=== PATIENT | female | born 1930 | race Caucasian/White ===

== ENCOUNTER → 2016-05-08 | Outpatient (REF) | payer MEDICARE ==
[2016-05-08 19:22] LABS: CALCIUM OXALATE CRYSTALS SMALL
== END ==
LOC: M SFHCCLAY 11:07
PROVIDERS: ATTEND Family Medicine
DX: R30.0 Dysuria (principal)
CPT/HCPCS: 81001; 81002; 87086; G0463

== ENCOUNTER → 2016-07-31 | Outpatient (REF) | payer MEDICARE | LOC: M SFHCCLAY 15:06 | PROVIDERS: ATTEND Family Medicine | DX: N39.0 Urinary tract infection, site not specified (principal); N30.00 Acute cystitis without hematuria ==

== ENCOUNTER → 2016-10-27 | Outpatient (REF) | payer MEDICARE | LOC: M SFHCCLAY 08:23 | PROVIDERS: ATTEND Family Medicine | DX: R53.82 Chronic fatigue, unspecified (principal) ==

== ENCOUNTER → 2016-10-28 | Outpatient (REF) | payer MEDICARE ==
[2016-10-28 11:54] LABS: FOLATE 6.8 NG/ML (>5.4); VITAMIN B12 LEVEL 490 PG/ML (247-911)
[2016-10-28 12:12] LABS: ALBUMIN 3.8 GM/DL (3.2-5.2); ALBUMIN/GLOBULIN RATIO 1.09 (1.00-1.93); ALKALINE PHOSPHATASE 77 U/L (45-117); ALT/SGPT 28 U/L (12-78); ANION GAP 7 MEQ/L (8-16); AST/SGOT 16 U/L (15-37); BILIRUBIN,TOTAL 0.5 MG/DL (0.2-1.0); BLOOD UREA NITROGEN 19 MG/DL (7-18); CALCIUM LEVEL 9.1 MG/DL (8.8-10.2); CARBON DIOXIDE LEVEL 29 MEQ/L (21-32); CHLORIDE LEVEL 106 MEQ/L (98-107); CREATININE FOR GFR 0.72 MG/DL (0.55-1.02); FREE T4 1.07 NG/DL (0.76-1.46); GLOMERULAR FILTRATION RATE > 60.0 (>32); GLUCOSE, FASTING 96 MG/DL (83-110); POTASSIUM SERUM 4.4 MEQ/L (3.5-5.1); SODIUM LEVEL 142 MEQ/L (136-145); TOTAL PROTEIN 7.3 GM/DL (6.4-8.2)
== END ==
LOC: M SFHCCLAY 07:23
PROVIDERS: ATTEND Family Medicine
DX: R53.82 Chronic fatigue, unspecified (principal)

== ENCOUNTER 2017-11-11 09:28 | Inpatient (IN) | payer MEDICARE ==
[2017-11-11 10:57] LABS: HEMATOCRIT 44.4 % (36.0-47.0); HEMOGLOBIN 14.8 g/dl (12.0-15.5); MEAN CORPUSCULAR HEMOGLOBIN 32.4 pg (27.0-33.0); MEAN CORPUSCULAR HGB CONC 33.3 g/dl (32.0-36.5); MEAN CORPUSCULAR VOLUME 97.2 fl (80.0-96.0); PLATELET COUNT, AUTOMATED 178 10^3/uL (150-450); POSITIVE DIFF POS FLAG; POSITIVE MORPH POS FLAG; RED BLOOD COUNT 4.57 10^6/uL (4.00-5.40); RED CELL DISTRIBUTION WIDTH 12.1 % (11.5-14.5); WHITE BLOOD COUNT 15.4 10^3/uL (4.0-10.0)
[2017-11-11 10:58] LABS: ADD MANUAL DIFFER YES; DIFF SLIDE NUMBER 193
[2017-11-11 11:09] LABS: INR 0.92; PROTHROMBIN TIME 12.5 SECONDS (12.1-14.4)
[2017-11-11 11:10] LABS: PARTIAL THROMBOPLASTIN TIME 25.6 SECONDS (25.4-37.6)
[2017-11-11 11:35] LABS: ANION GAP 8 MEQ/L (8-16); BLOOD UREA NITROGEN 17 MG/DL (7-18); CALCIUM LEVEL 8.8 MG/DL (8.8-10.2); CARBON DIOXIDE LEVEL 30 MEQ/L (21-32); CHLORIDE LEVEL 102 MEQ/L (98-107); CREATININE FOR GFR 0.81 MG/DL (0.55-1.30); GLOMERULAR FILTRATION RATE > 60.0 (>32); GLUCOSE, FASTING 115 MG/DL (70-100); POTASSIUM SERUM 4.1 MEQ/L (3.5-5.1); SODIUM LEVEL 140 MEQ/L (136-145)
[2017-11-11] MEDS: NS 1,000 ML IV (11:36)
[2017-11-11] MEDS: MORPHINE 4 MG/ML 1ML VIAL/SYRINGE (J2270) IV (11:37)
[2017-11-11 11:40] LABS: ATYPICAL LYMPH 11 % (0-5); EOSINOPHILS 1 % (0-5); LYMPHOCYTES 43 % (16-52); MONOCYTES 1 % (0-8); NEUTROPHILS 44 % (35-75); PLATELET ESTIMATE NORMAL (NORMAL)
[2017-11-11] MEDS: ADACEL/BOOSTRIX VACCINE (DIPHTH/PERTUSS/ACELL/TETANUS)0.5ML SYR (90715) IM (11:40)
[2017-11-11] MEDS ORDERED: BISACODYL 10 MG SUPP PR (12:45)
[2017-11-11] MEDS ORDERED: ACETAMINOPHEN TAB 650MG DOSE (2X325MG) PO (12:45)
[2017-11-11] MEDS: PERCOCET 5MG/325MG TAB PO (16:48)
[2017-11-11] MEDS ORDERED: MIDAZOLAM INJ 2 MG/2 ML VIAL (J2250) As Ordered (18:14)
[2017-11-11] MEDS ORDERED: fentaNYL 100 MCG/2 ML INJECTION (J3010) As Ordered (18:14)
[2017-11-11] MEDS ORDERED: dexameTHASONE 4 MG/ML 1ML VIAL (J1100) As Ordered (18:17)
[2017-11-11] MEDS ORDERED: ONDANSETRON 4MG/2ML VIAL (J2405) As Ordered (18:17)
[2017-11-11] MEDS ORDERED: PROPOFOL 200 MG/20 ML VIAL As Ordered ×2 (18:23)
[2017-11-11] MEDS ORDERED: KETAMINE HCL 200 MG/20 ML VIAL As Ordered (18:56)
[2017-11-11] MEDS: ceFAZolin 1GM INJ (J0690 PER 500MG) As Ordered (19:28)
[2017-11-11] MEDS ORDERED: SENOKOT S TAB PO (21:00)
[2017-11-11] MEDS ORDERED: fentaNYL 100 MCG/2 ML INJECTION (J3010) IV (21:00)
[2017-11-11] MEDS ORDERED: ONDANSETRON 4MG/2ML VIAL (J2405) IV (21:00)
[2017-11-11] MEDS: LR 1,000 ML IV (23:50)
[2017-11-11] MEDS: traMADol 50 MG TAB PO (23:51)
[2017-11-12] MEDS: traMADol 50 MG TAB PO ×3 (06:06→14:45)
[2017-11-12] MEDS ORDERED: LOSARTAN 25 MG TAB PO (09:00)
[2017-11-12] MEDS: INFLUENZA VIRUS VACCINE HIGH DOSE 0.5 ML SYRINGE (90662) IM (09:00)
[2017-11-12] MEDS: MIRALAX *UNIT DOSE* 17GM PACKET PO (09:00)
[2017-11-12] MEDS ORDERED: ENOXAPARIN 40 MG/0.4 ML SYRINGE (J1650) SC (09:00)
[2017-11-12] MEDS ORDERED: amLODIPine 5 MG TAB PO (09:00)
[2017-11-12] MEDS: SENOKOT S TAB PO (09:03)
[2017-11-12] MEDS: RIVAROXABAN 10 MG TAB (XARELTO) PO (09:03)
[2017-11-12] MEDS: MOM 30ML SUSPENSION UDC PO (09:03)
[2017-11-12] MEDS: ACETAMINOPHEN TAB 650MG DOSE (2X325MG) PO (09:16)
== END 2017-11-12 16:20 | DRG 482 ==
LOC: M ED 09:28 → M ED INP 12:41 → M MS5PR 15:20
PROC: 0QS606Z Reposition Right Upper Femur with Intramedullary Internal Fixation Device, Open Approach (ICD-10-PCS; principal; 2017-11-11 13:03)
DX: S72.144A Nondisplaced intertrochanteric fracture of right femur, initial encounter for closed fracture (principal); I10 Essential (primary) hypertension; E78.5 Hyperlipidemia, unspecified; M16.0 Bilateral primary osteoarthritis of hip; S51.011A Laceration without foreign body of right elbow, initial encounter; W18.09XA Striking against other object with subsequent fall, initial encounter; Y92.009 Unspecified place in unspecified non-institutional (private) residence as the place of occurrence of the external cause; M19.011 Primary osteoarthritis, right shoulder; Z98.41 Cataract extraction status, right eye; Z98.42 Cataract extraction status, left eye; Z85.828 Personal history of other malignant neoplasm of skin; Z79.899 Other long term (current) drug therapy; Z88.2 Allergy status to sulfonamides

== ENCOUNTER 2017-11-12 16:20 | Inpatient (IN) | payer MEDICARE ==
[~2017-11-12 16:20] MED LIST: MIDAZOLAM INJ 2 MG/2 ML VIAL (J2250) As Ordered; ONDANSETRON 4MG/2ML VIAL (J2405) As Ordered; PROPOFOL 200 MG/20 ML VIAL As Ordered; dexameTHASONE 4 MG/ML 1ML VIAL (J1100) As Ordered
[2017-11-12] MEDS ORDERED: CALCIUM CARBONATE 500 MG CHEW U/D PO (18:30)
[2017-11-12] MEDS ORDERED: ONDANSETRON 4MG/2ML VIAL (J2405) IV (18:30)
[2017-11-12] MEDS: DOCUSATE SODIUM 100 MG CAP PO (20:56)
[2017-11-12] MEDS: OMEGA-3 1000MG CAPSULE PO (20:56)
[2017-11-12] MEDS: traMADol 50 MG TAB PO (20:57)
[2017-11-12] MEDS: LIDOCAINE 5% (LIDODERM) PATCH TD (20:57)
[2017-11-12] MEDS ORDERED: **NOTE PATIENT COMMENT** MISC XX (21:00)
[2017-11-12 21:06] LABS: APPEARANCE, URINE CLEAR (CLEAR); BACTERIA, URINE AUTO 1+ (NEGATIVE); BILIRUBIN, URINE AUTO NEGATIVE (NEGATIVE); BLOOD, URINE BLOOD 1+ (NEGATIVE); COLOR, URINE YELLOW (YELLOW); GLUCOSE, URINE (UA) AUTO NEGATIVE (NEGATIVE); KETONE, URINE AUTO NEGATIVE (NEGATIVE); LEUKOCYTE ESTERASE, URINE AUTO 3+ (NEGATIVE); NITRITE, URINE AUTO NEGATIVE (NEGATIVE); PROTEIN, URINE AUTO NEGATIVE (NEGATIVE); RBC, URINE AUTO 4 /HPF (0-3); SPECIFIC GRAVITY URINE AUTO 1.011 (1.002-1.035); SQUAMOUS EPITHELIAL CELL UR AU 3 /HPF (0-6); UROBILINOGEN, URINE AUTO 0.2 mg/dL (0.0-2.0); WBC, URINE AUTO 95 /HPF (0-3)
[2017-11-13] MEDS: traMADol 50 MG TAB PO ×3 (06:35→20:12)
[2017-11-13] MEDS: amLODIPine 5 MG TAB PO (08:53)
[2017-11-13] MEDS: SENNA 8.6 MG TAB (SENOKOT) PO (08:53)
[2017-11-13] MEDS: PANTOPRAZOLE 40MG TAB (PROTONIX) PO (08:53)
[2017-11-13] MEDS: FENOFIBRATE 145 MG TAB (TRICOR) PO (08:53)
[2017-11-13] MEDS: LOSARTAN 25 MG TAB PO (08:53)
[2017-11-13] MEDS: OMEGA-3 1000MG CAPSULE PO ×2 (08:53→20:12)
[2017-11-13] MEDS: DOCUSATE SODIUM 100 MG CAP PO ×3 (08:53→20:12)
[2017-11-13] MEDS: CYANOCOBALAMIN 500 MCG TAB PO (08:54)
[2017-11-13] MEDS: **NOTE PATIENT COMMENT** MISC XX (08:54)
[2017-11-13] MEDS ORDERED: ONDANSETRON 4 MG TAB (S0181) PO ×2 (11:45→12:00)
[2017-11-13] MEDS: LISINOPRIL 20 MG TAB PO (15:51)
[2017-11-13] MEDS: RIVAROXABAN 10 MG TAB (XARELTO) PO (17:18)
[2017-11-13] MEDS: VITAMIN D 1,000 INTERNATIONAL UNITS TABLET PO (17:18)
[2017-11-13] MEDS: LIDOCAINE 5% (LIDODERM) PATCH TD (20:12)
[2017-11-14] MEDS: DOCUSATE SODIUM 100 MG CAP PO ×3 (08:25→20:31)
[2017-11-14] MEDS: SENNA 8.6 MG TAB (SENOKOT) PO (08:25)
[2017-11-14] MEDS: OMEGA-3 1000MG CAPSULE PO ×2 (08:25→20:31)
[2017-11-14] MEDS: PANTOPRAZOLE 40MG TAB (PROTONIX) PO (08:26)
[2017-11-14] MEDS: FENOFIBRATE 145 MG TAB (TRICOR) PO (08:26)
[2017-11-14] MEDS: traMADol 50 MG TAB PO ×3 (08:26→20:57)
[2017-11-14] MEDS: **NOTE PATIENT COMMENT** MISC XX (08:27)
[2017-11-14] MEDS: LOSARTAN 25 MG TAB PO (08:27)
[2017-11-14] MEDS: CYANOCOBALAMIN 500 MCG TAB PO (08:27)
[2017-11-14] MEDS: amLODIPine 10 MG TAB PO (08:27)
[2017-11-14] MEDS: VITAMIN D 1,000 INTERNATIONAL UNITS TABLET PO (08:27)
[2017-11-14] MEDS: RIVAROXABAN 10 MG TAB (XARELTO) PO (17:22)
[2017-11-14] MEDS: LIDOCAINE 5% (LIDODERM) PATCH TD (20:31)
[2017-11-15] MEDS: traMADol 50 MG TAB PO ×2 (07:26→20:50)
[2017-11-15] MEDS: CYANOCOBALAMIN 500 MCG TAB PO (10:39)
[2017-11-15] MEDS: VITAMIN D 1,000 INTERNATIONAL UNITS TABLET PO (10:39)
[2017-11-15] MEDS: PANTOPRAZOLE 40MG TAB (PROTONIX) PO (10:39)
[2017-11-15] MEDS: OMEGA-3 1000MG CAPSULE PO ×2 (10:39→20:31)
[2017-11-15] MEDS: DOCUSATE SODIUM 100 MG CAP PO ×3 (10:39→20:31)
[2017-11-15] MEDS: FENOFIBRATE 145 MG TAB (TRICOR) PO (10:39)
[2017-11-15] MEDS: SENNA 8.6 MG TAB (SENOKOT) PO (10:39)
[2017-11-15] MEDS: **NOTE PATIENT COMMENT** MISC XX (10:40)
[2017-11-15] MEDS: amLODIPine 10 MG TAB PO (10:40)
[2017-11-15] MEDS: LOSARTAN 25 MG TAB PO (10:40)
[2017-11-15] MEDS: RIVAROXABAN 10 MG TAB (XARELTO) PO (16:57)
[2017-11-15] MEDS: LIDOCAINE 5% (LIDODERM) PATCH TD (20:31)
[2017-11-16] MEDS: CYANOCOBALAMIN 500 MCG TAB PO (08:47)
[2017-11-16] MEDS: traMADol 50 MG TAB PO ×2 (08:48→18:33)
[2017-11-16] MEDS: SENNA 8.6 MG TAB (SENOKOT) PO (08:48)
[2017-11-16] MEDS: amLODIPine 10 MG TAB PO (08:48)
[2017-11-16] MEDS: LOSARTAN 25 MG TAB PO (08:48)
[2017-11-16] MEDS: VITAMIN D 1,000 INTERNATIONAL UNITS TABLET PO (08:48)
[2017-11-16] MEDS: PANTOPRAZOLE 40MG TAB (PROTONIX) PO (08:49)
[2017-11-16] MEDS: FENOFIBRATE 145 MG TAB (TRICOR) PO (08:49)
[2017-11-16] MEDS: OMEGA-3 1000MG CAPSULE PO ×2 (08:49→21:33)
[2017-11-16] MEDS: **NOTE PATIENT COMMENT** MISC XX (08:49)
[2017-11-16] MEDS: DOCUSATE SODIUM 100 MG CAP PO ×3 (08:49→21:33)
[2017-11-16 11:45] LABS: HEMATOCRIT 33.6 % (36.0-47.0); HEMOGLOBIN 11.5 g/dl (12.0-15.5); MEAN CORPUSCULAR HEMOGLOBIN 32.7 pg (27.0-33.0); MEAN CORPUSCULAR HGB CONC 34.2 g/dl (32.0-36.5); MEAN CORPUSCULAR VOLUME 95.5 fl (80.0-96.0); PLATELET COUNT, AUTOMATED 221 10^3/uL (150-450); RED BLOOD COUNT 3.52 10^6/uL (4.00-5.40); RED CELL DISTRIBUTION WIDTH 12.6 % (11.5-14.5)
[2017-11-16 12:08] LABS: ALBUMIN 2.9 GM/DL (3.2-5.2); ALBUMIN/GLOBULIN RATIO 0.74 (1.00-1.93); ALKALINE PHOSPHATASE 61 U/L (45-117); ALT/SGPT 25 U/L (12-78); ANION GAP 9 MEQ/L (8-16); AST/SGOT 25 U/L (7-37); BILIRUBIN,TOTAL 1.4 MG/DL (0.2-1.0); BLOOD UREA NITROGEN 18 MG/DL (7-18); CALCIUM LEVEL 8.9 MG/DL (8.8-10.2); CARBON DIOXIDE LEVEL 28 MEQ/L (21-32); CHLORIDE LEVEL 98 MEQ/L (98-107); CREATININE FOR GFR 0.85 MG/DL (0.55-1.30); GLOMERULAR FILTRATION RATE > 60.0 (>32); GLUCOSE, FASTING 111 MG/DL (70-100); POTASSIUM SERUM 3.7 MEQ/L (3.5-5.1); SODIUM LEVEL 135 MEQ/L (136-145); TOTAL PROTEIN 6.8 GM/DL (6.4-8.2)
[2017-11-16 12:14] LABS: ADD MANUAL DIFFER YES; DIFF SLIDE NUMBER 222; POSITIVE DIFF POS FLAG; POSITIVE MORPH POS FLAG; WHITE BLOOD COUNT 18.3 10^3/uL (4.0-10.0)
[2017-11-16 12:18] LABS: ANISOCYTOSIS 1+; ATYPICAL LYMPH 2 % (0-5); BASOPHILS 1 % (0-4); LYMPHOCYTES 68 % (16-52); MONOCYTES 5 % (0-8); NEUTROPHILS 24 % (35-75); PLATELET ESTIMATE NORMAL (NORMAL); POLYCHROMASIA 1+
[2017-11-16] MEDS: RIVAROXABAN 10 MG TAB (XARELTO) PO (16:56)
[2017-11-16] MEDS: LIDOCAINE 5% (LIDODERM) PATCH TD (21:33)
[2017-11-17 07:25] LABS: BASO # 0.1 10^3/uL (0.0-0.2); BASO % 0.3 % (0.0-1.0); EOS # 0.2 10^3/uL (0.0-0.50); EOS % 1.2 % (0.0-3.0); HEMATOCRIT 35.2 % (36.0-47.0); HEMOGLOBIN 11.6 g/dl (12.0-15.5); IMMATURE GRANULOCYTE % 0.2 % (0-3.0); LYMPH % 75.4 % (24.0-44.0); MEAN CORPUSCULAR HEMOGLOBIN 31.8 pg (27.0-33.0); MEAN CORPUSCULAR VOLUME 96.4 fl (80.0-96.0); MONO # 0.9 10^3/uL (0.0-0.8); MONO % 4.6 % (0.0-5.0); NEUTROPHILS # 3.6 10^3/uL (1.8-7.7); NEUTROPHILS % 18.3 % (36.0-66.0); PLATELET COUNT, AUTOMATED 248 10^3/uL (150-450); RED BLOOD COUNT 3.65 10^6/uL (4.00-5.40); RED CELL DISTRIBUTION WIDTH 12.6 % (11.5-14.5)
[2017-11-17 07:54] LABS: BLOOD UREA NITROGEN 20 MG/DL (7-18); CARBON DIOXIDE LEVEL 33 MEQ/L (21-32); CHLORIDE LEVEL 98 MEQ/L (98-107); CREATININE FOR GFR 0.78 MG/DL (0.55-1.30); GLOMERULAR FILTRATION RATE > 60.0 (>32); GLUCOSE, FASTING 106 MG/DL (70-100); POTASSIUM SERUM 3.8 MEQ/L (3.5-5.1); SODIUM LEVEL 138 MEQ/L (136-145)
[2017-11-17 07:55] LABS: ANION GAP 7 MEQ/L (8-16); CALCIUM LEVEL 9.2 MG/DL (8.8-10.2)
[2017-11-17 07:57] LABS: LYMPH # 14.9 10^3/uL (1.5-4.5); POSITIVE DIFF POS FLAG; POSITIVE MORPH POS FLAG; WHITE BLOOD COUNT 19.7 10^3/uL (4.0-10.0)
[2017-11-17] MEDS: OMEGA-3 1000MG CAPSULE PO ×2 (09:38→20:58)
[2017-11-17] MEDS: CYANOCOBALAMIN 500 MCG TAB PO (09:38)
[2017-11-17] MEDS: DOCUSATE SODIUM 100 MG CAP PO ×3 (09:38→20:58)
[2017-11-17] MEDS: VITAMIN D 1,000 INTERNATIONAL UNITS TABLET PO (09:38)
[2017-11-17] MEDS: FENOFIBRATE 145 MG TAB (TRICOR) PO (09:39)
[2017-11-17] MEDS: LOSARTAN 25 MG TAB PO (09:39)
[2017-11-17] MEDS: PANTOPRAZOLE 40MG TAB (PROTONIX) PO (09:39)
[2017-11-17] MEDS: amLODIPine 10 MG TAB PO (09:40)
[2017-11-17] MEDS: **NOTE PATIENT COMMENT** MISC XX (09:41)
[2017-11-17] MEDS: traMADol 50 MG TAB PO ×2 (09:41→20:59)
[2017-11-17] MEDS: SENNA 8.6 MG TAB (SENOKOT) PO (09:41)
[2017-11-17] MEDS: RIVAROXABAN 10 MG TAB (XARELTO) PO (17:06)
[2017-11-17] MEDS: LIDOCAINE 5% (LIDODERM) PATCH TD (20:59)
[2017-11-18] MEDS: FENOFIBRATE 145 MG TAB (TRICOR) PO (08:14)
[2017-11-18] MEDS: OMEGA-3 1000MG CAPSULE PO ×2 (08:15→20:42)
[2017-11-18] MEDS: CYANOCOBALAMIN 500 MCG TAB PO (08:15)
[2017-11-18] MEDS: PANTOPRAZOLE 40MG TAB (PROTONIX) PO (08:15)
[2017-11-18] MEDS: amLODIPine 10 MG TAB PO (08:15)
[2017-11-18] MEDS: LOSARTAN 25 MG TAB PO (08:15)
[2017-11-18] MEDS: VITAMIN D 1,000 INTERNATIONAL UNITS TABLET PO (08:15)
[2017-11-18] MEDS: DOCUSATE SODIUM 100 MG CAP PO ×3 (08:16→20:42)
[2017-11-18] MEDS: SENNA 8.6 MG TAB (SENOKOT) PO (08:16)
[2017-11-18] MEDS: **NOTE PATIENT COMMENT** MISC XX (08:16)
[2017-11-18] MEDS: traMADol 50 MG TAB PO ×2 (08:16→20:42)
[2017-11-18] MEDS: RIVAROXABAN 10 MG TAB (XARELTO) PO (17:47)
[2017-11-18] MEDS: LIDOCAINE 5% (LIDODERM) PATCH TD (20:43)
[2017-11-19] MEDS: **NOTE PATIENT COMMENT** MISC XX (09:00)
[2017-11-19] MEDS: CYANOCOBALAMIN 500 MCG TAB PO (09:32)
[2017-11-19] MEDS: PANTOPRAZOLE 40MG TAB (PROTONIX) PO (09:32)
[2017-11-19] MEDS: LOSARTAN 25 MG TAB PO (09:32)
[2017-11-19] MEDS: amLODIPine 10 MG TAB PO (09:32)
[2017-11-19] MEDS: OMEGA-3 1000MG CAPSULE PO ×2 (09:32→20:27)
[2017-11-19] MEDS: FENOFIBRATE 145 MG TAB (TRICOR) PO (09:32)
[2017-11-19] MEDS: SENNA 8.6 MG TAB (SENOKOT) PO (09:32)
[2017-11-19] MEDS: VITAMIN D 1,000 INTERNATIONAL UNITS TABLET PO (09:32)
[2017-11-19] MEDS: DOCUSATE SODIUM 100 MG CAP PO ×3 (09:32→21:00)
[2017-11-19] MEDS: traMADol 50 MG TAB PO (11:05)
[2017-11-19] MEDS: RIVAROXABAN 10 MG TAB (XARELTO) PO (17:16)
[2017-11-19] MEDS: LIDOCAINE 5% (LIDODERM) PATCH TD (20:27)
[2017-11-20] MEDS: traMADol 50 MG TAB PO ×3 (02:56→23:31)
[2017-11-20] MEDS: OMEGA-3 1000MG CAPSULE PO ×2 (08:36→21:09)
[2017-11-20] MEDS: CYANOCOBALAMIN 500 MCG TAB PO (08:36)
[2017-11-20] MEDS: amLODIPine 10 MG TAB PO (08:37)
[2017-11-20] MEDS: LOSARTAN 25 MG TAB PO (08:37)
[2017-11-20] MEDS: FENOFIBRATE 145 MG TAB (TRICOR) PO (08:37)
[2017-11-20] MEDS: PANTOPRAZOLE 40MG TAB (PROTONIX) PO (08:37)
[2017-11-20] MEDS: VITAMIN D 1,000 INTERNATIONAL UNITS TABLET PO (08:37)
[2017-11-20] MEDS: DOCUSATE SODIUM 100 MG CAP PO ×3 (08:38→21:00)
[2017-11-20] MEDS: **NOTE PATIENT COMMENT** MISC XX (08:38)
[2017-11-20] MEDS: SENNA 8.6 MG TAB (SENOKOT) PO (08:38)
[2017-11-20] MEDS: RIVAROXABAN 10 MG TAB (XARELTO) PO (17:14)
[2017-11-20] MEDS: LIDOCAINE 5% (LIDODERM) PATCH TD (21:09)
[2017-11-21] MEDS: traMADol 50 MG TAB PO ×2 (03:35→20:22)
[2017-11-21] MEDS: **NOTE PATIENT COMMENT** MISC XX (09:00)
[2017-11-21] MEDS: LOSARTAN 25 MG TAB PO (09:33)
[2017-11-21] MEDS: SENNA 8.6 MG TAB (SENOKOT) PO (09:33)
[2017-11-21] MEDS: FENOFIBRATE 145 MG TAB (TRICOR) PO (09:33)
[2017-11-21] MEDS: DOCUSATE SODIUM 100 MG CAP PO ×3 (09:33→20:22)
[2017-11-21] MEDS: amLODIPine 10 MG TAB PO (09:33)
[2017-11-21] MEDS: CYANOCOBALAMIN 500 MCG TAB PO (09:33)
[2017-11-21] MEDS: PANTOPRAZOLE 40MG TAB (PROTONIX) PO (09:33)
[2017-11-21] MEDS: OMEGA-3 1000MG CAPSULE PO ×2 (09:33→20:21)
[2017-11-21] MEDS: VITAMIN D 1,000 INTERNATIONAL UNITS TABLET PO (09:33)
[2017-11-21] MEDS: RIVAROXABAN 10 MG TAB (XARELTO) PO (17:17)
[2017-11-21] MEDS: LIDOCAINE 5% (LIDODERM) PATCH TD (20:22)
[2017-11-22] MEDS: FENOFIBRATE 145 MG TAB (TRICOR) PO (08:42)
[2017-11-22] MEDS: SENNA 8.6 MG TAB (SENOKOT) PO (08:43)
[2017-11-22] MEDS: OMEGA-3 1000MG CAPSULE PO ×2 (08:43→20:49)
[2017-11-22] MEDS: VITAMIN D 1,000 INTERNATIONAL UNITS TABLET PO (08:43)
[2017-11-22] MEDS: PANTOPRAZOLE 40MG TAB (PROTONIX) PO (08:43)
[2017-11-22] MEDS: CYANOCOBALAMIN 500 MCG TAB PO (08:43)
[2017-11-22] MEDS: traMADol 50 MG TAB PO ×2 (08:44→20:43)
[2017-11-22] MEDS: LOSARTAN 25 MG TAB PO (08:44)
[2017-11-22] MEDS: DOCUSATE SODIUM 100 MG CAP PO ×3 (08:44→20:42)
[2017-11-22] MEDS: amLODIPine 10 MG TAB PO (08:44)
[2017-11-22] MEDS: **NOTE PATIENT COMMENT** MISC XX (08:45)
[2017-11-22] MEDS: RIVAROXABAN 10 MG TAB (XARELTO) PO (17:16)
[2017-11-22] MEDS: LIDOCAINE 5% (LIDODERM) PATCH TD (20:42)
[2017-11-23] MEDS: DOCUSATE SODIUM 100 MG CAP PO ×3 (08:28→20:49)
[2017-11-23] MEDS: CYANOCOBALAMIN 500 MCG TAB PO (08:28)
[2017-11-23] MEDS: VITAMIN D 1,000 INTERNATIONAL UNITS TABLET PO (08:28)
[2017-11-23] MEDS: OMEGA-3 1000MG CAPSULE PO ×2 (08:28→20:49)
[2017-11-23] MEDS: PANTOPRAZOLE 40MG TAB (PROTONIX) PO (08:28)
[2017-11-23] MEDS: FENOFIBRATE 145 MG TAB (TRICOR) PO (08:29)
[2017-11-23] MEDS: LOSARTAN 25 MG TAB PO (08:29)
[2017-11-23] MEDS: amLODIPine 10 MG TAB PO (08:29)
[2017-11-23] MEDS: traMADol 50 MG TAB PO (08:29)
[2017-11-23] MEDS: SENNA 8.6 MG TAB (SENOKOT) PO (08:29)
[2017-11-23] MEDS: **NOTE PATIENT COMMENT** MISC XX (08:30)
[2017-11-23] MEDS: RIVAROXABAN 10 MG TAB (XARELTO) PO (18:30)
[2017-11-23] MEDS: LIDOCAINE 5% (LIDODERM) PATCH TD (20:49)
[2017-11-24] MEDS: CYANOCOBALAMIN 500 MCG TAB PO (08:13)
[2017-11-24] MEDS: SENNA 8.6 MG TAB (SENOKOT) PO (08:13)
[2017-11-24] MEDS: FENOFIBRATE 145 MG TAB (TRICOR) PO (08:13)
[2017-11-24] MEDS: LOSARTAN 25 MG TAB PO (08:13)
[2017-11-24] MEDS: PANTOPRAZOLE 40MG TAB (PROTONIX) PO (08:13)
[2017-11-24] MEDS: amLODIPine 10 MG TAB PO (08:13)
[2017-11-24] MEDS: VITAMIN D 1,000 INTERNATIONAL UNITS TABLET PO (08:13)
[2017-11-24] MEDS: **NOTE PATIENT COMMENT** MISC XX (08:14)
[2017-11-24] MEDS: DOCUSATE SODIUM 100 MG CAP PO ×3 (08:14→20:29)
[2017-11-24] MEDS: traMADol 50 MG TAB PO ×2 (08:16→20:28)
[2017-11-24] MEDS: OMEGA-3 1000MG CAPSULE PO ×2 (11:51→20:28)
[2017-11-24] MEDS: RIVAROXABAN 10 MG TAB (XARELTO) PO (18:11)
[2017-11-24] MEDS: LIDOCAINE 5% (LIDODERM) PATCH TD (20:28)
[2017-11-25] MEDS: **NOTE PATIENT COMMENT** MISC XX (09:00)
[2017-11-25] MEDS: SENNA 8.6 MG TAB (SENOKOT) PO (09:00)
[2017-11-25] MEDS: DOCUSATE SODIUM 100 MG CAP PO (09:31)
[2017-11-25] MEDS: CYANOCOBALAMIN 500 MCG TAB PO (09:31)
[2017-11-25] MEDS: LOSARTAN 25 MG TAB PO (09:31)
[2017-11-25] MEDS: PANTOPRAZOLE 40MG TAB (PROTONIX) PO (09:32)
[2017-11-25] MEDS: FENOFIBRATE 145 MG TAB (TRICOR) PO (09:32)
[2017-11-25] MEDS: OMEGA-3 1000MG CAPSULE PO (09:32)
[2017-11-25] MEDS: amLODIPine 10 MG TAB PO (09:32)
[2017-11-25] MEDS: VITAMIN D 1,000 INTERNATIONAL UNITS TABLET PO (09:32)
[2017-11-25] MEDS: RIVAROXABAN 10 MG TAB (XARELTO) PO (13:38)
== END 2017-11-25 14:00 | disposition home or self-care (01) | DRG 561 ==
LOC: M PM&R 11-23 17:12
DX: S72.141D Displaced intertrochanteric fracture of right femur, subsequent encounter for closed fracture with routine healing (principal); W01.0XXD Fall on same level from slipping, tripping and stumbling without subsequent striking against object, subsequent encounter; Y92.009 Unspecified place in unspecified non-institutional (private) residence as the place of occurrence of the external cause; Y93.01 Activity, walking, marching and hiking; I10 Essential (primary) hypertension; E78.5 Hyperlipidemia, unspecified; M19.90 Unspecified osteoarthritis, unspecified site; M85.851 Other specified disorders of bone density and structure, right thigh; M81.0 Age-related osteoporosis without current pathological fracture; S43.081D Other subluxation of right shoulder joint, subsequent encounter; R26.89 Other abnormalities of gait and mobility; Z98.41 Cataract extraction status, right eye; Z98.42 Cataract extraction status, left eye; Z90.710 Acquired absence of both cervix and uterus; Z85.828 Personal history of other malignant neoplasm of skin; Z79.01 Long term (current) use of anticoagulants; Z79.899 Other long term (current) drug therapy; Z88.2 Allergy status to sulfonamides

== ENCOUNTER 2017-11-30 09:38 | Outpatient (RCR) | payer MEDICARE | END 2017-12-15 | LOC: M PT 09:38 | DX: S72.041A Displaced fracture of base of neck of right femur, initial encounter for closed fracture (principal) | CPT/HCPCS: 97110 ==

== ENCOUNTER 2017-12-16 13:54 | Outpatient (RCR) | payer MEDICARE | END 2018-01-14 | LOC: M PT 12-21 14:21 | DX: S72.001D Fracture of unspecified part of neck of right femur, subsequent encounter for closed fracture with routine healing (principal); X58.XXXD Exposure to other specified factors, subsequent encounter | CPT/HCPCS: 97110 ==

== ENCOUNTER → 2018-01-03 | Outpatient (CLI) | payer MEDICARE | LOC: M WHC 13:55 | DX: S72.001D Fracture of unspecified part of neck of right femur, subsequent encounter for closed fracture with routine healing (principal); X58.XXXD Exposure to other specified factors, subsequent encounter; Y92.9 Unspecified place or not applicable; M85.851 Other specified disorders of bone density and structure, right thigh; M85.852 Other specified disorders of bone density and structure, left thigh | CPT/HCPCS: 77080 ==

== ENCOUNTER 2018-02-09 13:33 | Outpatient (RCR) | payer MEDICARE ==
[~2018-02-09 13:33] MED LIST changes: +AMLO5TAB4 PO; +CALC600T60 PO; +CURC500C PO; +FENO160T10 PO; +LOSA25TA33 PO; -MIDAZOLAM INJ 2 MG/2 ML VIAL (J2250) As Ordered; +OMEG12004 PO; -ONDANSETRON 4MG/2ML VIAL (J2405) As Ordered; +PANT40TA3 PO; -PROPOFOL 200 MG/20 ML VIAL As Ordered; +TRAM50TA2 PO; +VITA10002 PO; +XARE10TA PO; -dexameTHASONE 4 MG/ML 1ML VIAL (J1100) As Ordered
== END 2018-02-14 ==
LOC: M PT 13:33
PROVIDERS: ATTEND Family Medicine
DX: S72.041A Displaced fracture of base of neck of right femur, initial encounter for closed fracture (principal)

== ENCOUNTER 2018-03-14 12:50 | Outpatient (RCR) | payer MEDICARE ==
[~2018-03-14 12:50] MED LIST changes: -AMLO5TAB4 PO; +AMLO5TAB6 PO; +LOSA25TA14 PO; -LOSA25TA33 PO
== END 2018-03-17 ==
LOC: M PT 12:50
PROVIDERS: ATTEND Family Medicine
DX: S72.141D Displaced intertrochanteric fracture of right femur, subsequent encounter for closed fracture with routine healing (principal); M25.511 Pain in right shoulder

== ENCOUNTER 2018-04-13 15:15 | Outpatient (RCR) | payer MEDICARE ==
[2018-04-19] MEDS ORDERED: AMLO5TAB6 PO (13:57)
== END 2018-04-14 ==
LOC: M PT 15:15
PROVIDERS: ATTEND Family Medicine
DX: S72.141D Displaced intertrochanteric fracture of right femur, subsequent encounter for closed fracture with routine healing (principal); M25.511 Pain in right shoulder

== ENCOUNTER 2018-04-25 15:01 | Outpatient (RCR) | payer MEDICARE | END 2018-05-15 | LOC: M PT 15:01 | PROVIDERS: ATTEND Family Medicine | DX: S72.141D Displaced intertrochanteric fracture of right femur, subsequent encounter for closed fracture with routine healing (principal); S72.041A Displaced fracture of base of neck of right femur, initial encounter for closed fracture; M25.511 Pain in right shoulder ==

== ENCOUNTER → 2018-10-04 | Outpatient (REF) | payer MEDICARE ==
[~2018-10-04] MED LIST changes: +CYAN100049 PO; -VITA10002 PO
== END ==
LOC: M SFHCCLAY 14:35
PROVIDERS: ATTEND Family Medicine
DX: E78.2 Mixed hyperlipidemia (principal); R53.82 Chronic fatigue, unspecified

== ENCOUNTER → 2018-10-05 | Outpatient (REF) | payer MEDICARE ==
[2018-10-05 12:29] LABS: ALBUMIN 3.8 GM/DL (3.2-5.2); ALT/SGPT 20 U/L (12-78); BILIRUBIN,TOTAL 0.6 MG/DL (0.2-1.0); BLOOD UREA NITROGEN 19 MG/DL (7-18); CALCIUM LEVEL 9.4 MG/DL (8.8-10.2); CARBON DIOXIDE LEVEL 28 MEQ/L (21-32); CHLORIDE LEVEL 105 MEQ/L (98-107); CHOLESTEROL LEVEL 205 MG/DL (<200); GLOMERULAR FILTRATION RATE > 60.0 (>32); GLUCOSE, FASTING 92 MG/DL (70-100); HDL CHOLESTEROL 61 MG/DL (>40); LDL CHOLESTEROL 124 MG/DL (<100); NON-HDL-C 144 MG/DL; POTASSIUM SERUM 4.1 MEQ/L (3.5-5.1); SODIUM LEVEL 140 MEQ/L (136-145); TOTAL PROTEIN 6.9 GM/DL (6.4-8.2); TRIGLYCERIDES LEVEL 102 MG/DL (<150)
== END ==
LOC: M SFHCCLAY 07:17
PROVIDERS: ATTEND Family Medicine
DX: E78.2 Mixed hyperlipidemia (principal); R53.82 Chronic fatigue, unspecified

== ENCOUNTER → 2019-06-29 | Outpatient (REF) | payer MEDICARE ==
[2019-06-29 17:55] LABS: BLOOD UREA NITROGEN 23 MG/DL (7-18); CALCIUM LEVEL 9.5 MG/DL (8.8-10.2); CARBON DIOXIDE LEVEL 28 MEQ/L (21-32); CHLORIDE LEVEL 104 MEQ/L (98-107); CREATININE FOR GFR 0.82 MG/DL (0.55-1.30); GLOMERULAR FILTRATION RATE > 60.0 (>32); GLUCOSE, FASTING 87 MG/DL (70-100); POTASSIUM SERUM 5.2 MEQ/L (3.5-5.1); SODIUM LEVEL 138 MEQ/L (136-145)
== END ==
LOC: M SFHCCLAY 10:08
PROVIDERS: ATTEND Family Medicine
DX: I10 Essential (primary) hypertension (principal); E03.9 Hypothyroidism, unspecified

== ENCOUNTER → 2019-11-22 | Outpatient (CLI) | payer MEDICARE ==
[~2019-11-22] MED LIST changes: +AMLO1TAB24 PO; -AMLO5TAB6 PO; +PANT40TA29 PO; -PANT40TA3 PO
--- NOTE | 2019-11-27 14:33 | REP ---
CHEST X-RAY: 2-VIEWS HISTORY: Atypical chest pain. COMPARISON: Chest x-ray 11/11/2017. FINDINGS: The lungs a reevaluation well-inflated and free of infiltrate. Pleural angles are sharp. Heart is mildly enlarged. Cardiothoracic ratio measures 53.4%. The thoracic aorta is calcific and tortuous. Pulmonary vasculature is not increased. No significant bony abnormality. IMPRESSION: Mild cardiomegaly. Mild hyperinflation. Otherwise no acute disease. MTDD
== END ==
LOC: M CLY 13:51
PROVIDERS: ATTEND Family Medicine
DX: I51.7 Cardiomegaly (principal); R07.89 Other chest pain; Z23 Encounter for immunization
CPT/HCPCS: 71046; 90682; 93005; G0008; G0463

== ENCOUNTER → 2019-11-28 | Outpatient (CLI) | payer MEDICARE ==
--- NOTE | 2019-12-01 13:20 | REP ---
DIGITAL DIAGNOSTIC BILATERAL MAMMOGRAPHY WITH CAD, 3D-TOMOGRAPHY, AND TARGETED LEFT BREAST ULTRASOUND HISTORY: Sharp pain that comes and goes in the left breast upper outer quadrant region. COMPARISON: No available comparison mammography. MAMMOGRAPHIC FINDINGS: Scattered fibroglandular elements are seen. The [place] volumetric breast parenchymal density pattern is B. There is bilateral vascular calcification. No dominant density is seen in the upper-outer quadrant of the left breast or elsewhere on either side mammographically. Normal appearing lymph nodes are seen in each axilla. No microcalcifications, architectural distortion, or worrisome skin changes appreciated. No mammographic abnormality. SONOGRAPHIC FINDINGS: Targeted left breast sonography is performed in the area of pain in the left breast 3 to 4 o'clock region. Fibroglandular background echotexture is seen. Fairly homogeneous. No cyst, mass, acoustic shadowing, or architectural distortion is seen. IMPRESSION: BI-RADS Category 1 negative findings. Clinical follow-up is advised. This mammogram was interpreted with the aid of an FDA approved computer-aided detection system. MELIA
== END ==
LOC: M WHC 13:52
PROVIDERS: ATTEND Family Medicine
DX: N60.11 Diffuse cystic mastopathy of right breast (principal); N60.12 Diffuse cystic mastopathy of left breast
CPT/HCPCS: 76642; 77066; G0279

== ENCOUNTER → 2020-07-05 | Outpatient (REF) | payer MEDICARE ==
[2020-07-05 11:45] LABS: HEMATOCRIT 45.3 % (36.0-47.0); HEMOGLOBIN 14.7 g/dl (12.0-15.5); MEAN CORPUSCULAR HEMOGLOBIN 32.5 pg (27.0-33.0); MEAN CORPUSCULAR HGB CONC 32.5 g/dl (32.0-36.5); PLATELET COUNT, AUTOMATED 195 10^3/uL (150-450); RED BLOOD COUNT 4.53 10^6/uL (4.00-5.40); WHITE BLOOD COUNT 21.9 10^3/uL (4.0-10.0)
[2020-07-05 12:29] LABS: ALBUMIN 3.9 GM/DL (3.2-5.2); ALT/SGPT 19 U/L (12-78); BILIRUBIN,TOTAL 0.6 MG/DL (0.2-1.0); BLOOD UREA NITROGEN 20 MG/DL (7-18); CALCIUM LEVEL 9.5 MG/DL (8.8-10.2); CARBON DIOXIDE LEVEL 32 MEQ/L (21-32); CHLORIDE LEVEL 105 MEQ/L (98-107); CHOLESTEROL LEVEL 197 MG/DL (<200); CHOLESTEROL RISK RATIO 2.855 (<5); CREATININE FOR GFR 0.74 MG/DL (0.55-1.30); FREE T4 1.09 NG/DL (0.76-1.46); GLOMERULAR FILTRATION RATE > 60.0 (>32); GLUCOSE, FASTING 93 MG/DL (70-100); HDL CHOLESTEROL 69 MG/DL (>40); LDL CHOLESTEROL 109 MG/DL (<100); NON-HDL-C 128 MG/DL; POTASSIUM SERUM 4.6 MEQ/L (3.5-5.1); SODIUM LEVEL 140 MEQ/L (136-145); TOTAL PROTEIN 6.9 GM/DL (6.4-8.2); TRIGLYCERIDES LEVEL 93 MG/DL (<150)
== END ==
LOC: M SFHCCLAY 06:58
PROVIDERS: ATTEND Family Medicine
DX: E03.9 Hypothyroidism, unspecified (principal); I10 Essential (primary) hypertension; E78.2 Mixed hyperlipidemia

== ENCOUNTER → 2020-09-18 | Outpatient (REF) | payer MEDICARE ==
[2020-09-18 16:49] LABS: BASO # 0.1 10^3/uL (0.0-0.2); BASO % 0.3 % (0.0-1.0); EOS # 0.1 10^3/uL (0.0-0.5); EOS % 0.6 % (0.0-3.0); HEMATOCRIT 45.4 % (36.0-47.0); HEMOGLOBIN 14.6 g/dl (12.0-15.5); LYMPH # 13.9 10^3/uL (1.5-5.0); LYMPH % 77.2 % (24.0-44.0); MEAN CORPUSCULAR HEMOGLOBIN 31.9 pg (27.0-33.0); MEAN CORPUSCULAR HGB CONC 32.2 g/dl (32.0-36.5); MEAN CORPUSCULAR VOLUME 99.1 fl (80.0-96.0); MONO # 0.6 10^3/uL (0.0-0.8); MONO % 3.5 % (2.0-8.0); NEUTROPHILS # 3.3 10^3/uL (1.5-8.5); NEUTROPHILS % 18.3 % (36.0-66.0); PLATELET COUNT, AUTOMATED 192 10^3/uL (150-450); RED BLOOD COUNT 4.58 10^6/uL (4.00-5.40)
[2020-09-18 16:58] LABS: ALBUMIN 3.9 GM/DL (3.2-5.2); ALT/SGPT 20 U/L (12-78); BILIRUBIN,TOTAL 0.7 MG/DL (0.2-1.0); BLOOD UREA NITROGEN 20 MG/DL (7-18); CALCIUM LEVEL 9.5 MG/DL (8.8-10.2); CARBON DIOXIDE LEVEL 31 MEQ/L (21-32); CHLORIDE LEVEL 103 MEQ/L (98-107); CREATININE FOR GFR 0.68 MG/DL (0.55-1.30); FOLATE 7.9 NG/ML (>5.4); FREE T4 1.07 NG/DL (0.76-1.46); GLOMERULAR FILTRATION RATE > 60.0 (>32); GLUCOSE, FASTING 90 MG/DL (70-100); POTASSIUM SERUM 4.6 MEQ/L (3.5-5.1); SODIUM LEVEL 138 MEQ/L (136-145); TOTAL PROTEIN 7.2 GM/DL (6.4-8.2); VITAMIN B12 LEVEL > 2000 PG/ML (247-911)
== END ==
LOC: M SFHCCLAY 09:53
PROVIDERS: ATTEND Family Medicine
DX: R53.83 Other fatigue (principal); I10 Essential (primary) hypertension; R26.89 Other abnormalities of gait and mobility
CPT/HCPCS: 80053; 82607; 82746; 84439; 84443; 85025; G0463

== ENCOUNTER → 2021-02-11 | Outpatient (REF) | payer MEDICARE ==
[~2021-02-11] MED LIST changes: +LOSA25TA13 PO; -LOSA25TA14 PO
[2021-02-11 11:32] LABS: BASO # 0.1 10^3/uL (0.0-0.2); BASO % 0.4 % (0.0-1.0); EOS # 0.1 10^3/uL (0.0-0.5); EOS % 0.6 % (0.0-3.0); HEMATOCRIT 44.2 % (36.0-47.0); HEMOGLOBIN 14.2 g/dl (12.0-15.5); LYMPH % 79.8 % (24.0-44.0); MEAN CORPUSCULAR HGB CONC 32.1 g/dl (32.0-36.5); MEAN CORPUSCULAR VOLUME 99.5 fl (80.0-96.0); MONO # 0.9 10^3/uL (0.0-0.8); MONO % 3.7 % (2.0-8.0); NEUTROPHILS # 3.9 10^3/uL (1.5-8.5); NEUTROPHILS % 15.4 % (36.0-66.0); PLATELET COUNT, AUTOMATED 196 10^3/uL (150-450); RED BLOOD COUNT 4.44 10^6/uL (4.00-5.40); WHITE BLOOD COUNT 25.1 10^3/uL (4.0-10.0)
[2021-02-11 12:08] LABS: ALBUMIN 3.8 GM/DL (3.2-5.2); ALT/SGPT 18 U/L (12-78); BILIRUBIN,TOTAL 0.5 MG/DL (0.2-1.0); BLOOD UREA NITROGEN 21 MG/DL (7-18); CALCIUM LEVEL 9.7 MG/DL (8.8-10.2); CARBON DIOXIDE LEVEL 32 MEQ/L (21-32); CHLORIDE LEVEL 105 MEQ/L (98-107); CREATININE FOR GFR 0.68 MG/DL (0.55-1.30); GLOMERULAR FILTRATION RATE > 60.0 (>32); GLUCOSE, FASTING 93 MG/DL (70-100); POTASSIUM SERUM 4.1 MEQ/L (3.5-5.1); SODIUM LEVEL 142 MEQ/L (136-145)
[2021-02-11 12:12] LABS: VITAMIN B12 LEVEL 807 PG/ML (247-911)
[2021-02-12 09:51] LABS: ALBUMIN 4.28 GM/DL (3.29-5.55); ALBUMIN % 61.2 % (55.8-66.1); ALPHA-1-GLOBULIN % 4.2 % (2.9-4.9); ALPHA-1-GLOBULINS 0.29 GM/DL (0.17-0.41); ALPHA-2-GLOBULINS 0.73 GM/DL (0.42-0.99); ALPHA-2-GLOBULINS % 10.4 % (7.1-11.8); BETA-1-GLOBULINS 0.43 GM/DL (0.28-0.60); BETA-1-GLOBULINS % 6.2 % (4.7-7.2); BETA-2-GLOBULINS 0.34 GM/DL (0.19-0.55); BETA-2-GLOBULINS % 4.8 % (3.2-6.5); GAMMA GLOBULIN % 13.2 % (11.1-18.8); GAMMA GLOBULINS 0.92 GM/DL (0.65-1.58)
== END ==
LOC: M SFHCCLAY 08:55
PROVIDERS: ATTEND Family Medicine
DX: M21.372 Foot drop, left foot (principal); E53.8 Deficiency of other specified B group vitamins; I10 Essential (primary) hypertension

== ENCOUNTER → 2021-02-27 | Outpatient (CLI) | payer MEDICARE | LOC: M PLAIMG 09:12 → M RAD 09:12 | PROVIDERS: ATTEND Family Medicine | DX: M21.372 Foot drop, left foot (principal); M48.061 Spinal stenosis, lumbar region without neurogenic claudication; M51.26 Other intervertebral disc displacement, lumbar region; M46.06 Spinal enthesopathy, lumbar region ==

== ENCOUNTER → 2022-02-24 | Outpatient (REF) | payer MEDICARE ==
[2022-02-24 11:50] LABS: APPEARANCE, URINE MANUAL CLOUDY (CLEAR); COLOR, URINE MANUAL YELLOW (YELLOW)
[2022-02-24 11:51] LABS: SPECIFIC GRAVITY,URINE MANUAL 1.015 (1.002-1.035)
[2022-02-24 11:52] LABS: BILIRUBIN, URINE MANUAL NEGATIVE (NEGATIVE); BLOOD URINE MANUAL TRACE (NEGATIVE); GLUCOSE, URINE (UA) MANUAL NEGATIVE (NEGATIVE); KETONE, URINE MANUAL NEGATIVE (NEGATIVE); LEUKOCYTE ESTERASE, URINE MAN TRACE (NEGATIVE); NITRITE, URINE MANUAL NEGATIVE (NEGATIVE); PROTEIN, URINE MANUAL TRACE mg/dL (NEGATIVE); UROBILINOGEN, URINE MANUAL 1 MG mg/dl (NORMAL)
[2022-02-24 11:53] LABS: BASO # 0.1 10^3/uL (0.0-0.2); BASO % 0.3 % (0.0-1.0); EOS # 0.2 10^3/uL (0.0-0.5); EOS % 0.6 % (0.0-3.0); HEMATOCRIT 46.2 % (36.0-47.0); HEMOGLOBIN 14.5 g/dl (12.0-15.5); LYMPH # 24.4 10^3/uL (1.5-5.0); LYMPH % 84.1 % (24.0-44.0); MEAN CORPUSCULAR HEMOGLOBIN 31.7 pg (27.0-33.0); MEAN CORPUSCULAR HGB CONC 31.4 g/dl (32.0-36.5); MEAN CORPUSCULAR VOLUME 101.1 fl (80.0-96.0); MONO # 0.7 10^3/uL (0.0-0.8); MONO % 2.5 % (2.0-8.0); NEUTROPHILS # 3.6 10^3/uL (1.5-8.5); NEUTROPHILS % 12.4 % (36.0-66.0); PLATELET COUNT, AUTOMATED 173 10^3/uL (150-450); RED BLOOD COUNT 4.57 10^6/uL (4.00-5.40)
[2022-02-24 12:18] LABS: AMORPHOUS SEDIMENT, URINE MOD AMOUNT (NEGATIVE); BACTERIA, URINE SMALL AMOUNT; HYALINE CAST, URINE NONE SEEN /lpf (0-1); SQUAMOUS EPITHELIAL CELL URINE MOD AMOUNT /hpf (SMALL AMT); TRANSITIONAL EPI CELLS, URINE SMALL AMOUNT /hpf
[2022-02-24 12:28] LABS: ALBUMIN 3.8 G/DL (3.2-5.2); ALKALINE PHOSPHATASE 72 U/L (46-116); ALT/SGPT 13 U/L (7.0-40); AST/SGOT 18 U/L (<34); BILIRUBIN,TOTAL 0.6 MG/DL (0.3-1.2); BLOOD UREA NITROGEN 15 MG/DL (9-23); CALCIUM LEVEL 9.6 MG/DL (8.3-10.6); CARBON DIOXIDE LEVEL 32 MMOL/L (20-31); CHLORIDE LEVEL 104 MMOL/L (98-107); CREATININE FOR GFR 0.67 MG/DL (0.55-1.30); GLOMERULAR FILTRATION RATE > 60.0 (>32); GLUCOSE, FASTING 93 MG/DL (74-106); POTASSIUM SERUM 4.4 MMOL/L (3.5-5.1); SODIUM LEVEL 141 MMOL/L (136-145); TOTAL PROTEIN 6.8 G/DL (5.7-8.2)
[2022-02-24 12:30] LABS: FREE T4 1.08 NG/DL (0.89-1.76); THYROID STIMULATING HORMONE 3.022 uIU/ML (0.55-4.78)
== END ==
LOC: M SFHCCLAY 08:13
PROVIDERS: ATTEND Family Medicine
DX: N39.0 Urinary tract infection, site not specified (principal); I10 Essential (primary) hypertension; C91.10 Chronic lymphocytic leukemia of B-cell type not having achieved remission